=== PATIENT | female | born 1985 | race African-American/Black ===

== ENCOUNTER 2016-09-09 15:04 | Emergency (ER) | payer OTHER, SELFPAY ==
[2016-09-09] MEDS ORDERED: diphenhydrAMINE HCl 50 MG/ML 1 ML VIAL ONE ×2 (15:21→16:59)
[2016-09-09] MEDS ORDERED: Sodium Chloride 0.9% 1,000 ML ONE (15:21)
[2016-09-09] MEDS ORDERED: Promethazine HCl 25 MG/ML VIAL ONE ×2 (15:21→16:59)
[2016-09-09 15:53] LABS: #Basophils 0.1 thou/uL (0.0-0.2); #Lymphocytes 2.4 thou/uL (1.20-3.40); #Monocytes 0.5 thou/uL (0.11-0.59); #Neutrophils 5.7 thou/uL (1.40-6.50); %Basophils 0.7 % (0.0-1.0); %Eosinophils 0.4 % (0.0-10.0); %Lymphocytes 27.2 % (21.0-51.0); %Monocytes 5.7 % (0.0-10.0); Hemoglobin 12.7 g/dL (12.0-16.0); Mean Corpuscular HGB CONC 31.7 g/dL (32.0-36.0); Mean Corpuscular Hemoglobin 27.1 pg (27.0-31.0); Mean Corpuscular Volume 85.7 fl (81.0-99.0); Mean Platelet Volume 6.9 fL (7.4-10.4); Platelet Count 277 thou/uL (130-400); RBC Distribution Width 12.1 % (11.5-14.5); Red Blood Cell (RBC) Count 4.66 mill/uL (4.20-5.40); White Blood Cell (WBC) Count 8.7 thou/uL (4.8-10.8)
[2016-09-09 16:09] LABS: ALT (SGPT) 57 U/L (8-55); AST (SGOT) 38 U/L (5-34); Alkaline Phosphatase 120 U/L (40-150); Anion Gap 15 mmol/L (10-20); BUN (Urea Nitrogen) 7 mg/dL (7.0-18.7); Bilirubin, Total 0.2 mg/dL (0.2-1.2); Calc. Creatinine Clearance 0 mL/min (70-130); Calcium 9.2 mg/dL (7.8-10.44); Carbon Dioxide 21 mmol/L (22-29); Chloride 107 mmol/L (98-107); Estimated GFR-MDRD Greater than 90; Glucose 89 mg/dL (70-105); Potassium 3.6 mmol/L (3.5-5.1); Sodium 139 mmol/L (136-145)
[2016-09-09] MEDS ORDERED: Sodium Chloride 0.9% 500 ML ONE (16:59)
== END 2016-09-09 18:21 | disposition home or self-care (01) ==
LOC: NAV ERS 15:04
DX: G43.909 Migraine, unspecified, not intractable, without status migrainosus (principal); F41.9 Anxiety disorder, unspecified; Z79.899 Other long term (current) drug therapy
CPT/HCPCS: 36415; 80053; 85025; 85652; 86140; 96365; 96366; 96375; 96376; J1200; J2550; J7050

== ENCOUNTER 2019-05-03 18:06 | Emergency (ER) | payer OTHER ==
[2019-05-03] MEDS ORDERED: Sodium Chloride 0.9% 1,000 ML ONE (18:48)
[2019-05-03] MEDS ORDERED: Ketorolac Tromethamine 30 MG/ML VIAL ONE (18:48)
[2019-05-03] MEDS ORDERED: Ondansetron PF 4 MG/2 ML Vial ONE (18:48)
[2019-05-03] MEDS ORDERED: Metoclopramide HCl 10 MG TAB ONE (18:48)
[2019-05-03] MEDS ORDERED: diphenhydrAMINE 50 MG/ML VIAL ONE (18:48)
[2019-05-03] MEDS ORDERED: Acetaminophen 500 MG TAB ONE (18:48)
[2019-05-03] MEDS ORDERED: Metoclopramide HCl 10 MG/2 ML VIAL ONE (18:49)
== END 2019-05-03 19:45 | disposition home or self-care (01) ==
LOC: NAV ERS 18:06
DX: G43.909 Migraine, unspecified, not intractable, without status migrainosus (principal); F41.9 Anxiety disorder, unspecified; Z79.899 Other long term (current) drug therapy
CPT/HCPCS: 96365; 96375; J1200; J1885; J2405; J2765; J7050

== ENCOUNTER 2020-08-01 17:29 | Emergency (ER) | payer BC ==
[2020-08-01] MEDS ORDERED: Metoclopramide HCl 10 MG/2 ML VIAL ONE (17:52)
[2020-08-01] MEDS ORDERED: Acetaminophen 500 MG TAB ONE (17:52)
[2020-08-01] MEDS ORDERED: Sodium Chloride 0.9% 1,000 ML ONE (17:52)
[2020-08-01] MEDS ORDERED: diphenhydrAMINE 50 MG/ML VIAL ONE (17:52)
[2020-08-01] MEDS ORDERED: Ketorolac Tromethamine 30 MG/ML VIAL ONE (17:52)
== END 2020-08-01 19:10 | disposition home or self-care (01) ==
LOC: NAV ERS 17:29
DX: G43.909 Migraine, unspecified, not intractable, without status migrainosus (principal)
CPT/HCPCS: 96365; 96375; J1200; J1885; J2765; J7050